=== PATIENT | male | born 1995 | race Caucasian/White ===

== ENCOUNTER 2023-06-05 21:27 | Emergency (ER) | payer MEDICAID ==
[~2023-06-05] VITALS: Ht 167.6 cm; Wt 68.0 kg
[2023-06-05 22:45] VITALS: BP 126/77; PULSE 68; RESP 20; TEMP 98; O2SAT 98
[2023-06-06] MEDS ORDERED: BACITRACIN OINT 500 UNITS/GM PKT TP ONE (01:00)
== END 2023-06-06 01:47 | disposition home or self-care (01) ==
LOC: MED 21:27
DX: S62.636A Displaced fracture of distal phalanx of right little finger, initial encounter for closed fracture (principal); X58.XXXA Exposure to other specified factors, initial encounter; Y93.89 Activity, other specified; Y92.89 Other specified places as the place of occurrence of the external cause; Y99.8 Other external cause status
CPT/HCPCS: 73140; 90471; 90715; 99283